=== PATIENT | male | born 1940 | race African-American/Black ===

== ENCOUNTER 2021-10-11 06:17 | Inpatient (IN) | payer OTHER ==
[2021-10-11] MEDS ORDERED: Morphine 4 MG/ML VIAL ONE (07:15)
[2021-10-11 08:03] LABS: #Basophils 0.1 thou/uL (0.0-0.2); #Eosinphils 0.3 thou/uL (0.0-0.7); #Lymphocytes 2.7 thou/uL (1.20-3.40); #Monocytes 0.8 thou/uL (0.11-0.59); #Neutrophils 5.3 thou/uL (1.40-6.50); %Basophils 0.8 % (0.0-1.0); %Eosinophils 2.7 % (0.0-10.0); %Lymphocytes 29.7 % (21.0-51.0); %Monocytes 8.9 % (0.0-10.0); %Neutrophils 57.9 % (42.0-75.0); Hemoglobin 17.4 g/dL (14.0-18.0); Mean Corpuscular HGB CONC 30.8 g/dL (32.0-36.0); Mean Corpuscular Hemoglobin 28.9 pg (27.0-31.0); Mean Corpuscular Volume 94.1 fL (78.0-98.0); Mean Platelet Volume 8.5 fL (7.4-10.4); Platelet Count 152 thou/uL (130-400); RBC Distribution Width 13.2 % (11.5-14.5); Red Blood Cell (RBC) Count 6.02 mill/uL (4.70-6.10); White Blood Cell (WBC) Count 9.1 thou/uL (4.8-10.8)
[2021-10-11 08:17] LABS: ALT (SGPT) 37 U/L (8-55); AST (SGOT) 39 U/L (5-34); Albumin 3.3 g/dL (3.4-4.8); Alkaline Phosphatase 61 U/L (40-110); Anion Gap 15 mmol/L (10-20); BUN (Urea Nitrogen) 16 mg/dL (8.4-25.7); Bilirubin, Total 0.6 mg/dL (0.2-1.2); Calc. Creatinine Clearance 0 mL/min (70-130); Calcium 9.2 mg/dL (7.8-10.44); Carbon Dioxide 28 mmol/L (23-31); Chloride 103 mmol/L (98-107); Estimated GFR 93; Globulin 3.9 g/dL (2.4-3.5); Glucose 170 mg/dL (83-110); Protein, Total 7.2 g/dL (5.8-8.1); Sodium 142 mmol/L (136-145)
[2021-10-11] MEDS ORDERED: Ondansetron PF 4 MG/2 ML Vial IVP PRN (14:05)
[2021-10-11] MEDS ORDERED: Acetaminophen 650 MG Suppository PR PRN (14:05)
[2021-10-11] MEDS ORDERED: Ondansetron ODT 4 MG TAB PO PRN (14:05)
[2021-10-11] MEDS ORDERED: Insulin Regular 300 UNITS/3 ML VIAL SC PRN ×2 (14:07)
[2021-10-11] MEDS ORDERED: Dextrose 5% in Water 1,000 ML IV PRN (14:07)
[2021-10-11] MEDS ORDERED: Dextrose 50% Abboject 50 ML SYRINGE SLOW IVP PRN (14:07)
[2021-10-11] MEDS ORDERED: Albuterol Sulfate 2.5 mg/3 ml Neb NEB PRN (14:44)
[2021-10-11] MEDS: Acetaminophen 325 MG TAB PO PRN ×2 (14:47→21:57)
[2021-10-11] MEDS ORDERED: Xylocaine 1% w/ Epi 1:100K 10 ML VIAL ONE (19:17)
[2021-10-11] MEDS: Fentanyl 100 MCG/2 ML VIAL ONE ×2 (19:30→21:47)
[2021-10-11] MEDS ORDERED: Fentanyl 100 MCG/2 ML VIAL SLOW IVP SCH (20:00)
[2021-10-11] MEDS: Lactated Ringer's 1,000 ML IV SCH (20:36)
[2021-10-11] MEDS: Mometasone 100 MCG/Formoterol 5 MCG 120 PUFF INHALER INH SCH (21:36)
[2021-10-11] MEDS: Metoprolol Tartrate 25 MG TAB PO SCH (21:41)
[2021-10-11] MEDS: Famotidine 20 MG TAB PO SCH (21:41)
[2021-10-11] MEDS: Timolol 0.5% Ophth Soln 5 ml Bottle EA EYE SCH (21:48)
[2021-10-11] MEDS: traMADol HCl 50 MG TAB PO PRN (21:58)
[2021-10-12] MEDS: Metoprolol Tartrate 25 MG TAB PO SCH ×2 (05:13→20:18)
[2021-10-12] MEDS: Famotidine 20 MG TAB PO SCH ×3 (05:13→20:18)
[2021-10-12] MEDS: PARoxetine 20 MG TAB PO SCH (05:13)
[2021-10-12] MEDS: Acetaminophen 325 MG TAB PO PRN ×3 (05:16→20:16)
[2021-10-12] MEDS: traMADol HCl 50 MG TAB PO PRN ×2 (05:17→20:17)
[2021-10-12 05:19] LABS: SARS-CoV-2 NAA Rapid Test Not Detected (NotDetected)
[2021-10-12] MEDS: Mometasone 100 MCG/Formoterol 5 MCG 120 PUFF INHALER INH SCH ×2 (06:40→19:35)
[2021-10-12 07:01] LABS: Hemoglobin 15.4 g/dL (14.0-18.0); Mean Corpuscular HGB CONC 30.5 g/dL (32.0-36.0); Mean Corpuscular Hemoglobin 28.7 pg (27.0-31.0); Mean Corpuscular Volume 94.3 fL (78.0-98.0); Red Blood Cell (RBC) Count 5.36 mill/uL (4.70-6.10)
[2021-10-12 07:05] LABS: #Eosinphils 0.3 thou/uL (0.0-0.7); #Lymphocytes 1.8 thou/uL (1.20-3.40); #Monocytes 0.6 thou/uL (0.11-0.59); #Neutrophils 4.2 thou/uL (1.40-6.50); %Basophils 0.6 % (0.0-1.0); %Eosinophils 4.5 % (0.0-10.0); %Lymphocytes 25.6 % (21.0-51.0); %Monocytes 8.8 % (0.0-10.0); %Neutrophils 60.5 % (42.0-75.0)
[2021-10-12 07:11] LABS: Anion Gap 11 mmol/L (10-20); BUN (Urea Nitrogen) 11 mg/dL (8.4-25.7); Calc. Creatinine Clearance 105 mL/min (70-130); Calcium 8.8 mg/dL (7.8-10.44); Carbon Dioxide 32 mmol/L (23-31); Chloride 102 mmol/L (98-107); Estimated GFR 97; Glucose 100 mg/dL (83-110); Potassium 4.1 mmol/L (3.5-5.1); Sodium 141 mmol/L (136-145)
[2021-10-12] MEDS ORDERED: fentaNYL Citrate/PF 100 MCG/2 ML SYRINGE ONE (07:32)
[2021-10-12] MEDS ORDERED: Phenylephrine 10 MG/ML VIAL ONE ×2 (07:33→08:16)
[2021-10-12] MEDS ORDERED: Bupivacaine PF 0.5% 30 ML VIAL ONE (07:35)
[2021-10-12] MEDS ORDERED: EPINEPHrine 1 MG/ML AMP ONE (07:35)
[2021-10-12] MEDS ORDERED: Ondansetron PF 4 MG/2 ML Vial ONE (08:16)
[2021-10-12] MEDS ORDERED: Dexamethasone 20 MG/5 ML VIAL ONE (08:16)
[2021-10-12] MEDS ORDERED: Lidocaine 1% PF 5 ML VIAL ONE (08:16)
[2021-10-12] MEDS ORDERED: ePHEDrine 50 MG/ML VIAL ONE (08:16)
[2021-10-12] MEDS ORDERED: PROPOFOL 200 MG/20 ML VIAL ONE (08:16)
[2021-10-12] MEDS ORDERED: Rocuronium Bromide 10 MG/ML (10ML VIAL) ONE (08:16)
[2021-10-12 08:18] LABS: Mean Platelet Volume 8.6 fL (7.4-10.4); Platelet Count 116 thou/uL (130-400)
[2021-10-12 08:19] LABS: RBC Morphology Normal
[2021-10-12 08:20] LABS: Platelet Morphology Comment Appears Decreased
[2021-10-12] MEDS ORDERED: SUGAMMADEX SODIUM 200 MG/2 ML VIAL ONE (09:52)
[2021-10-12] MEDS ORDERED: Ondansetron PF 4 MG/2 ML Vial IVP PRN (11:24)
[2021-10-12] MEDS: Fentanyl 100 MCG/2 ML VIAL SLOW IVP PRN ×2 (12:25→16:17)
[2021-10-12] MEDS: Ketorolac Tromethamine 30 MG/ML VIAL IVP PRN (12:26)
[2021-10-12] MEDS: Lactated Ringer's 1,000 ML IV SCH (12:30)
[2021-10-12] MEDS: Timolol 0.5% Ophth Soln 5 ml Bottle EA EYE SCH ×2 (12:31→20:18)
[2021-10-12] MEDS: CEFAZOLIN 2 GM in Sodium Chloride 0.9% 100 ML IVPB SCH (17:42)
[2021-10-13] MEDS: CEFAZOLIN 2 GM in Sodium Chloride 0.9% 100 ML IVPB SCH ×2 (01:26→07:49)
[2021-10-13] MEDS: Lactated Ringer's 1,000 ML IV SCH (02:57)
[2021-10-13 04:06] LABS: #Lymphocytes 1.4 thou/uL (1.20-3.40); #Monocytes 0.9 thou/uL (0.11-0.59); #Neutrophils 9.1 thou/uL (1.40-6.50); %Basophils 0.1 % (0.0-1.0); %Eosinophils 0.1 % (0.0-10.0); %Lymphocytes 12.3 % (21.0-51.0); %Neutrophils 79.4 % (42.0-75.0); Hemoglobin 14.6 g/dL (14.0-18.0); Mean Corpuscular HGB CONC 31.8 g/dL (32.0-36.0); Mean Corpuscular Hemoglobin 29.8 pg (27.0-31.0); Mean Corpuscular Volume 93.8 fL (78.0-98.0); Mean Platelet Volume 8.7 fL (7.4-10.4); Platelet Count 117 thou/uL (130-400); RBC Distribution Width 12.8 % (11.5-14.5); Red Blood Cell (RBC) Count 4.88 mill/uL (4.70-6.10); White Blood Cell (WBC) Count 11.5 thou/uL (4.8-10.8)
[2021-10-13 04:23] LABS: Anion Gap 11 mmol/L (10-20); BUN (Urea Nitrogen) 16 mg/dL (8.4-25.7); Calc. Creatinine Clearance 101 mL/min (70-130); Calcium 8.4 mg/dL (7.8-10.44); Carbon Dioxide 30 mmol/L (23-31); Chloride 102 mmol/L (98-107); Estimated GFR 95; Glucose 139 mg/dL (83-110); Potassium 3.8 mmol/L (3.5-5.1); Sodium 139 mmol/L (136-145)
[2021-10-13] MEDS: Mometasone 100 MCG/Formoterol 5 MCG 120 PUFF INHALER INH SCH ×2 (06:44→19:00)
[2021-10-13] MEDS: Famotidine 20 MG TAB PO SCH ×2 (07:49→21:37)
[2021-10-13] MEDS: Timolol 0.5% Ophth Soln 5 ml Bottle EA EYE SCH ×2 (07:49→21:38)
[2021-10-13] MEDS: Metoprolol Tartrate 25 MG TAB PO SCH ×2 (07:49→22:47)
[2021-10-13] MEDS: PARoxetine 20 MG TAB PO SCH (07:49)
[2021-10-13] MEDS: traMADol HCl 50 MG TAB PO PRN ×2 (07:52→17:00)
[2021-10-13] MEDS: Ketorolac Tromethamine 30 MG/ML VIAL IVP PRN (19:42)
[2021-10-13] MEDS: Brimonidine Tartrate 0.2% Ophth Soln 5 ml Bottle EA EYE SCH (21:38)
[2021-10-14] MEDS: traMADol HCl 50 MG TAB PO PRN ×3 (02:59→16:42)
[2021-10-14 03:43] LABS: #Eosinphils 0.4 thou/uL (0.0-0.7); #Lymphocytes 2.1 thou/uL (1.20-3.40); %Basophils 0.4 % (0.0-1.0); %Eosinophils 3.2 % (0.0-10.0); %Lymphocytes 18.3 % (21.0-51.0); %Monocytes 8.9 % (0.0-10.0); %Neutrophils 69.2 % (42.0-75.0); Hemoglobin 15.9 g/dL (14.0-18.0); Mean Corpuscular HGB CONC 31.7 g/dL (32.0-36.0); Mean Corpuscular Hemoglobin 29.7 pg (27.0-31.0); Mean Corpuscular Volume 93.6 fL (78.0-98.0); Mean Platelet Volume 8.6 fL (7.4-10.4); Platelet Count 121 thou/uL (130-400); RBC Distribution Width 12.9 % (11.5-14.5); Red Blood Cell (RBC) Count 5.34 mill/uL (4.70-6.10); White Blood Cell (WBC) Count 11.5 thou/uL (4.8-10.8)
[2021-10-14 04:04] LABS: Anion Gap 12 mmol/L (10-20); BUN (Urea Nitrogen) 12 mg/dL (8.4-25.7); Calc. Creatinine Clearance 117 mL/min (70-130); Calcium 8.7 mg/dL (7.8-10.44); Carbon Dioxide 31 mmol/L (23-31); Chloride 98 mmol/L (98-107); Estimated GFR 98; Glucose 93 mg/dL (83-110); Potassium 3.5 mmol/L (3.5-5.1); Sodium 137 mmol/L (136-145)
[2021-10-14] MEDS: Ketorolac Tromethamine 30 MG/ML VIAL IVP PRN ×2 (06:36→21:08)
[2021-10-14] MEDS: Mometasone 100 MCG/Formoterol 5 MCG 120 PUFF INHALER INH SCH ×2 (07:07→22:29)
[2021-10-14] MEDS: Amlodipine 5 MG TAB PO SCH (08:27)
[2021-10-14] MEDS: Famotidine 20 MG TAB PO SCH ×2 (08:27→21:09)
[2021-10-14] MEDS: PARoxetine 20 MG TAB PO SCH (08:28)
[2021-10-14] MEDS: Timolol 0.5% Ophth Soln 5 ml Bottle EA EYE SCH ×2 (10:05→21:13)
[2021-10-14] MEDS: Fentanyl 100 MCG/2 ML VIAL SLOW IVP PRN (10:07)
[2021-10-14] MEDS: Brimonidine Tartrate 0.2% Ophth Soln 5 ml Bottle EA EYE SCH (21:08)
[2021-10-15] MEDS: Ketorolac Tromethamine 30 MG/ML VIAL IVP PRN ×2 (04:02→14:05)
[2021-10-15] MEDS: traMADol HCl 50 MG TAB PO PRN ×2 (06:11→21:56)
[2021-10-15] MEDS: Mometasone 100 MCG/Formoterol 5 MCG 120 PUFF INHALER INH SCH ×2 (07:39→18:39)
[2021-10-15] MEDS: Famotidine 20 MG TAB PO SCH ×2 (09:51→21:57)
[2021-10-15] MEDS: Amlodipine 5 MG TAB PO SCH (09:51)
[2021-10-15] MEDS: PARoxetine 20 MG TAB PO SCH (09:51)
[2021-10-15] MEDS: Timolol 0.5% Ophth Soln 5 ml Bottle EA EYE SCH ×2 (09:51→21:55)
[2021-10-15] MEDS: Brimonidine Tartrate 0.2% Ophth Soln 5 ml Bottle EA EYE SCH (21:53)
[2021-10-16] MEDS: traMADol HCl 50 MG TAB PO PRN ×2 (04:32→21:11)
[2021-10-16] MEDS: Mometasone 100 MCG/Formoterol 5 MCG 120 PUFF INHALER INH SCH ×2 (06:44→18:57)
[2021-10-16] MEDS: PARoxetine 20 MG TAB PO SCH (09:45)
[2021-10-16] MEDS: Amlodipine 5 MG TAB PO SCH (09:45)
[2021-10-16] MEDS: Ketorolac Tromethamine 30 MG/ML VIAL IVP PRN ×2 (09:45→15:15)
[2021-10-16] MEDS: Famotidine 20 MG TAB PO SCH ×2 (09:45→21:11)
[2021-10-16] MEDS: Timolol 0.5% Ophth Soln 5 ml Bottle EA EYE SCH ×2 (09:45→21:11)
[2021-10-16] MEDS: Brimonidine Tartrate 0.2% Ophth Soln 5 ml Bottle EA EYE SCH (21:11)
[2021-10-17] MEDS: Mometasone 100 MCG/Formoterol 5 MCG 120 PUFF INHALER INH SCH ×2 (07:13→19:00)
[2021-10-17] MEDS: Amlodipine 5 MG TAB PO SCH (08:20)
[2021-10-17] MEDS: traMADol HCl 50 MG TAB PO PRN ×3 (08:23→22:51)
[2021-10-17] MEDS: PARoxetine 20 MG TAB PO SCH (08:23)
[2021-10-17] MEDS: Famotidine 20 MG TAB PO SCH ×2 (08:24→21:32)
[2021-10-17] MEDS: Timolol 0.5% Ophth Soln 5 ml Bottle EA EYE SCH ×2 (08:27→21:33)
[2021-10-17] MEDS: Fentanyl 100 MCG/2 ML VIAL SLOW IVP PRN (18:42)
[2021-10-17] MEDS: Brimonidine Tartrate 0.2% Ophth Soln 5 ml Bottle EA EYE SCH (21:33)
[2021-10-18] MEDS: Fentanyl 100 MCG/2 ML VIAL SLOW IVP PRN ×2 (03:13→10:55)
[2021-10-18 04:30] LABS: #Eosinphils 0.4 thou/uL (0.0-0.7); #Lymphocytes 1.5 thou/uL (1.20-3.40); #Monocytes 1.4 thou/uL (0.11-0.59); #Neutrophils 10.8 thou/uL (1.40-6.50); %Basophils 0.2 % (0.0-1.0); %Eosinophils 3.1 % (0.0-10.0); %Lymphocytes 10.3 % (21.0-51.0); %Monocytes 10.1 % (0.0-10.0); %Neutrophils 76.2 % (42.0-75.0); Hemoglobin 15.4 g/dL (14.0-18.0); Mean Corpuscular HGB CONC 31.5 g/dL (32.0-36.0); Mean Corpuscular Hemoglobin 29.1 pg (27.0-31.0); Mean Corpuscular Volume 92.2 fL (78.0-98.0); Mean Platelet Volume 8.1 fL (7.4-10.4); Platelet Count 157 thou/uL (130-400); Red Blood Cell (RBC) Count 5.29 mill/uL (4.70-6.10); White Blood Cell (WBC) Count 14.1 thou/uL (4.8-10.8)
[2021-10-18 04:51] LABS: Anion Gap 10 mmol/L (10-20); BUN (Urea Nitrogen) 19 mg/dL (8.4-25.7); Calc. Creatinine Clearance 104 mL/min (70-130); Calcium 9.1 mg/dL (7.8-10.44); Carbon Dioxide 34 mmol/L (23-31); Chloride 100 mmol/L (98-107); Estimated GFR 96; Glucose 126 mg/dL (83-110); Potassium 3.8 mmol/L (3.5-5.1); Sodium 140 mmol/L (136-145)
[2021-10-18] MEDS: Mometasone 100 MCG/Formoterol 5 MCG 120 PUFF INHALER INH SCH ×2 (07:49→19:21)
[2021-10-18] MEDS: traMADol HCl 50 MG TAB PO PRN (09:18)
[2021-10-18] MEDS: Amlodipine 5 MG TAB PO SCH (09:20)
[2021-10-18] MEDS: PARoxetine 20 MG TAB PO SCH (09:21)
[2021-10-18] MEDS: Famotidine 20 MG TAB PO SCH ×2 (09:21→19:59)
[2021-10-18] MEDS: Timolol 0.5% Ophth Soln 5 ml Bottle EA EYE SCH ×2 (09:23→20:00)
[2021-10-18] MEDS ORDERED: Lidocaine 5% Patch TD SCH (12:00)
[2021-10-18] MEDS ORDERED: Polyethylene Glycol 3350 17 GM Packet PO PRN (12:37)
[2021-10-18] MEDS: HYDROcodone/Acetaminophen 10/325 mg Tablet PO PRN ×2 (13:25→18:52)
[2021-10-18] MEDS: Acetaminophen 325 MG TAB PO PRN (19:59)
[2021-10-18] MEDS: Brimonidine Tartrate 0.2% Ophth Soln 5 ml Bottle EA EYE SCH (20:00)
[2021-10-19] MEDS: Transdermal Patch Removal TOP SCH ×2 (00:05→23:22)
[2021-10-19] MEDS: HYDROcodone/Acetaminophen 10/325 mg Tablet PO PRN ×4 (03:20→20:19)
[2021-10-19] MEDS: Mometasone 100 MCG/Formoterol 5 MCG 120 PUFF INHALER INH SCH ×2 (07:31→18:38)
[2021-10-19] MEDS: Famotidine 20 MG TAB PO SCH ×2 (09:59→20:19)
[2021-10-19] MEDS: PARoxetine 20 MG TAB PO SCH (09:59)
[2021-10-19] MEDS: Amlodipine 5 MG TAB PO SCH (09:59)
[2021-10-19] MEDS: Timolol 0.5% Ophth Soln 5 ml Bottle EA EYE SCH ×2 (10:01→20:18)
[2021-10-19] MEDS: Lidocaine 5% Patch TD SCH (12:05)
[2021-10-19] MEDS: Brimonidine Tartrate 0.2% Ophth Soln 5 ml Bottle EA EYE SCH (20:18)
[2021-10-20] MEDS: HYDROcodone/Acetaminophen 10/325 mg Tablet PO PRN ×4 (00:16→21:16)
[2021-10-20] MEDS: Mometasone 100 MCG/Formoterol 5 MCG 120 PUFF INHALER INH SCH ×2 (07:12→19:35)
[2021-10-20] MEDS: Famotidine 20 MG TAB PO SCH ×2 (10:19→21:17)
[2021-10-20] MEDS: PARoxetine 20 MG TAB PO SCH (10:19)
[2021-10-20] MEDS: Amlodipine 5 MG TAB PO SCH (10:19)
[2021-10-20] MEDS: Timolol 0.5% Ophth Soln 5 ml Bottle EA EYE SCH ×2 (10:20→21:17)
[2021-10-20] MEDS: Lidocaine 5% Patch TD SCH (12:51)
[2021-10-20] MEDS: Morphine 2 MG/ML VIAL SLOW IVP PRN (17:31)
[2021-10-20] MEDS: Brimonidine Tartrate 0.2% Ophth Soln 5 ml Bottle EA EYE SCH (21:17)
[2021-10-20] MEDS: traMADol HCl 50 MG TAB PO PRN (23:45)
[2021-10-20] MEDS: Transdermal Patch Removal TOP SCH (23:48)
[2021-10-21] MEDS: HYDROcodone/Acetaminophen 10/325 mg Tablet PO PRN ×3 (05:06→16:47)
[2021-10-21] MEDS: Mometasone 100 MCG/Formoterol 5 MCG 120 PUFF INHALER INH SCH ×2 (07:22→18:25)
[2021-10-21 08:24] LABS: Mean Corpuscular HGB CONC 31.9 g/dL (32.0-36.0); Mean Corpuscular Hemoglobin 29.9 pg (27.0-31.0); Mean Corpuscular Volume 93.8 fL (78.0-98.0); Platelet Count 150 thou/uL (130-400); RBC Distribution Width 12.7 % (11.5-14.5); Red Blood Cell (RBC) Count 5.02 mill/uL (4.70-6.10); White Blood Cell (WBC) Count 10.8 thou/uL (4.8-10.8)
[2021-10-21 08:38] LABS: Anion Gap 13 mmol/L (10-20); BUN (Urea Nitrogen) 18 mg/dL (8.4-25.7); Calc. Creatinine Clearance 119 mL/min (70-130); Calcium 8.9 mg/dL (7.8-10.44); Carbon Dioxide 31 mmol/L (23-31); Chloride 101 mmol/L (98-107); Estimated GFR 101; Glucose 98 mg/dL (83-110); Potassium 3.6 mmol/L (3.5-5.1); Sodium 141 mmol/L (136-145)
[2021-10-21] MEDS: Enoxaparin Sodium 40 MG/0.4 ML SYRINGE SC SCH (09:08)
[2021-10-21] MEDS: Amlodipine 5 MG TAB PO SCH (09:08)
[2021-10-21] MEDS: Famotidine 20 MG TAB PO SCH ×2 (09:08→21:20)
[2021-10-21] MEDS: PARoxetine 20 MG TAB PO SCH (09:08)
[2021-10-21] MEDS: Acetaminophen 325 MG TAB PO PRN (09:09)
[2021-10-21] MEDS: Timolol 0.5% Ophth Soln 5 ml Bottle EA EYE SCH ×2 (09:09→21:21)
[2021-10-21] MEDS: Lidocaine 5% Patch TD SCH (12:08)
[2021-10-21] MEDS: Brimonidine Tartrate 0.2% Ophth Soln 5 ml Bottle EA EYE SCH (21:21)
[2021-10-21] MEDS: Transdermal Patch Removal TOP SCH (22:57)
[2021-10-22] MEDS: traMADol HCl 50 MG TAB PO PRN (01:01)
[2021-10-22] MEDS: Mometasone 100 MCG/Formoterol 5 MCG 120 PUFF INHALER INH SCH ×2 (07:42→19:31)
[2021-10-22] MEDS: HYDROcodone/Acetaminophen 10/325 mg Tablet PO PRN ×3 (09:02→17:46)
[2021-10-22] MEDS: Amlodipine 5 MG TAB PO SCH (09:04)
[2021-10-22] MEDS: Famotidine 20 MG TAB PO SCH ×2 (09:05→20:43)
[2021-10-22] MEDS: Enoxaparin Sodium 40 MG/0.4 ML SYRINGE SC SCH (09:05)
[2021-10-22] MEDS: Timolol 0.5% Ophth Soln 5 ml Bottle EA EYE SCH ×2 (09:05→20:43)
[2021-10-22] MEDS: PARoxetine 20 MG TAB PO SCH (09:05)
[2021-10-22] MEDS: Lidocaine 5% Patch TD SCH (12:20)
[2021-10-22] MEDS: Brimonidine Tartrate 0.2% Ophth Soln 5 ml Bottle EA EYE SCH (20:43)
[2021-10-23] MEDS: HYDROcodone/Acetaminophen 10/325 mg Tablet PO PRN ×3 (00:07→19:31)
[2021-10-23] MEDS: Transdermal Patch Removal TOP SCH (00:19)
[2021-10-23 03:00] LABS: SARS-CoV-2 NAA Rapid Test Not Detected (NotDetected)
[2021-10-23] MEDS: Mometasone 100 MCG/Formoterol 5 MCG 120 PUFF INHALER INH SCH ×2 (06:36→18:25)
[2021-10-23 06:41] LABS: Actual Bicarbonate (HCO3a) 31.2 mEq/L (22-28); Base Excess (BEa) 6.4 mEq/L (-2.0 to +3.0); CO2 Tension 44.5 mmHg (35.0-45.0); Carboxyhemoglobin (COHb) 1.8 gm% (0.0-3.0); Hemoglobin (Hb) 15.8 g/dL (14.0-18.0); O2 Tension (PaO2), arterial 65.1 mmHg (> 60.0); pH, Arterial 7.46 (7.35-7.45)
[2021-10-23 06:42] LABS: #Eosinphils 0.1 thou/uL (0.0-0.7); #Lymphocytes 1.5 thou/uL (1.20-3.40); #Monocytes 1.2 thou/uL (0.11-0.59); #Neutrophils 11.2 thou/uL (1.40-6.50); %Eosinophils 0.8 % (0.0-10.0); %Lymphocytes 10.6 % (21.0-51.0); %Monocytes 8.6 % (0.0-10.0); Hemoglobin 15.4 g/dL (14.0-18.0); Mean Corpuscular HGB CONC 31.1 g/dL (32.0-36.0); Mean Corpuscular Hemoglobin 28.5 pg (27.0-31.0); Mean Corpuscular Volume 91.5 fL (78.0-98.0); Platelet Count 212 thou/uL (130-400); RBC Distribution Width 12.7 % (11.5-14.5); Red Blood Cell (RBC) Count 5.41 mill/uL (4.70-6.10)
[2021-10-23 06:50] LABS: ALV-art Gradient 235.775 mmHg (0-20); Puncture Site LRA
[2021-10-23 07:00] LABS: Anion Gap 15 mmol/L (10-20); BUN (Urea Nitrogen) 18 mg/dL (8.4-25.7); Calc. Creatinine Clearance 107 mL/min (70-130); Calcium 9.2 mg/dL (7.8-10.44); Carbon Dioxide 27 mmol/L (23-31); Chloride 102 mmol/L (98-107); Estimated GFR 97; Glucose 131 mg/dL (83-110); Potassium 3.5 mmol/L (3.5-5.1); Sodium 140 mmol/L (136-145)
[2021-10-23] MEDS ORDERED: Lidocaine 0.5%/Epinephrine 1:200,000 50 ml Vial ONE (08:42)
[2021-10-23] MEDS: PARoxetine 20 MG TAB PO SCH (10:40)
[2021-10-23] MEDS: Enoxaparin Sodium 40 MG/0.4 ML SYRINGE SC SCH (10:40)
[2021-10-23] MEDS: Amlodipine 5 MG TAB PO SCH (10:40)
[2021-10-23] MEDS: Famotidine 20 MG TAB PO SCH ×2 (10:40→19:33)
[2021-10-23] MEDS: Morphine 2 MG/ML VIAL SLOW IVP PRN ×2 (10:41→22:40)
[2021-10-23] MEDS: Timolol 0.5% Ophth Soln 5 ml Bottle EA EYE SCH ×2 (10:42→22:40)
[2021-10-23] MEDS ORDERED: Iopamidol-370 76% 500 ML 1 ML ONE (11:18)
[2021-10-23] MEDS: Lidocaine 5% Patch TD SCH (13:07)
[2021-10-23] MEDS: Docusate 100 MG CAP PO PRN (16:14)
[2021-10-23] MEDS: Brimonidine Tartrate 0.2% Ophth Soln 5 ml Bottle EA EYE SCH (22:40)
[2021-10-24] MEDS: Transdermal Patch Removal TOP SCH ×2 (00:58→20:39)
[2021-10-24] MEDS: Mometasone 100 MCG/Formoterol 5 MCG 120 PUFF INHALER INH SCH ×2 (07:26→18:26)
[2021-10-24] MEDS: Famotidine 20 MG TAB PO SCH ×2 (08:21→20:37)
[2021-10-24] MEDS: Amlodipine 5 MG TAB PO SCH (08:21)
[2021-10-24] MEDS: HYDROcodone/Acetaminophen 10/325 mg Tablet PO PRN ×3 (08:21→20:37)
[2021-10-24] MEDS: Timolol 0.5% Ophth Soln 5 ml Bottle EA EYE SCH ×2 (08:22→20:38)
[2021-10-24] MEDS: Enoxaparin Sodium 40 MG/0.4 ML SYRINGE SC SCH (08:22)
[2021-10-24] MEDS: PARoxetine 20 MG TAB PO SCH (08:23)
[2021-10-24] MEDS: Lidocaine 5% Patch TD SCH (13:11)
[2021-10-24] MEDS: Morphine 2 MG/ML VIAL SLOW IVP PRN (17:24)
[2021-10-24] MEDS: Brimonidine Tartrate 0.2% Ophth Soln 5 ml Bottle EA EYE SCH (20:39)
[2021-10-25] MEDS: HYDROcodone/Acetaminophen 10/325 mg Tablet PO PRN ×4 (05:53→20:47)
[2021-10-25] MEDS: Mometasone 100 MCG/Formoterol 5 MCG 120 PUFF INHALER INH SCH ×2 (07:08→18:34)
[2021-10-25] MEDS: Enoxaparin Sodium 40 MG/0.4 ML SYRINGE SC SCH (09:38)
[2021-10-25] MEDS: Famotidine 20 MG TAB PO SCH ×2 (09:38→20:46)
[2021-10-25] MEDS: PARoxetine 20 MG TAB PO SCH (09:39)
[2021-10-25] MEDS: Timolol 0.5% Ophth Soln 5 ml Bottle EA EYE SCH ×2 (09:39→20:47)
[2021-10-25] MEDS: Amlodipine 5 MG TAB PO SCH (09:40)
[2021-10-25] MEDS: Lidocaine 5% Patch TD SCH (12:44)
[2021-10-25] MEDS: Brimonidine Tartrate 0.2% Ophth Soln 5 ml Bottle EA EYE SCH (20:48)
[2021-10-25] MEDS: Transdermal Patch Removal TOP SCH (20:48)
[2021-10-26] MEDS: HYDROcodone/Acetaminophen 10/325 mg Tablet PO PRN ×3 (01:58→19:19)
[2021-10-26] MEDS: Mometasone 100 MCG/Formoterol 5 MCG 120 PUFF INHALER INH SCH ×2 (06:12→18:29)
[2021-10-26] MEDS: Timolol 0.5% Ophth Soln 5 ml Bottle EA EYE SCH ×2 (09:47→20:41)
[2021-10-26] MEDS: Enoxaparin Sodium 40 MG/0.4 ML SYRINGE SC SCH (09:48)
[2021-10-26] MEDS: PARoxetine 20 MG TAB PO SCH (09:48)
[2021-10-26] MEDS: Amlodipine 5 MG TAB PO SCH (09:49)
[2021-10-26] MEDS: Famotidine 20 MG TAB PO SCH ×2 (09:49→20:45)
[2021-10-26] MEDS: Lidocaine 5% Patch TD SCH (14:31)
[2021-10-26] MEDS: Brimonidine Tartrate 0.2% Ophth Soln 5 ml Bottle EA EYE SCH (20:45)
[2021-10-27] MEDS: Transdermal Patch Removal TOP SCH (00:54)
[2021-10-27] MEDS: HYDROcodone/Acetaminophen 10/325 mg Tablet PO PRN ×3 (04:01→18:10)
[2021-10-27] MEDS: Mometasone 100 MCG/Formoterol 5 MCG 120 PUFF INHALER INH SCH ×2 (06:59→18:39)
[2021-10-27] MEDS: PARoxetine 20 MG TAB PO SCH (09:40)
[2021-10-27] MEDS: Famotidine 20 MG TAB PO SCH ×2 (09:40→20:26)
[2021-10-27] MEDS: Amlodipine 5 MG TAB PO SCH (09:42)
[2021-10-27] MEDS: Timolol 0.5% Ophth Soln 5 ml Bottle EA EYE SCH ×2 (09:43→20:27)
[2021-10-27] MEDS: Enoxaparin Sodium 40 MG/0.4 ML SYRINGE SC SCH (09:43)
[2021-10-27] MEDS: Lidocaine 5% Patch TD SCH (12:55)
[2021-10-27] MEDS: Brimonidine Tartrate 0.2% Ophth Soln 5 ml Bottle EA EYE SCH (20:26)
[2021-10-28] MEDS: Transdermal Patch Removal TOP SCH ×2 (02:26→22:41)
[2021-10-28] MEDS: Mometasone 100 MCG/Formoterol 5 MCG 120 PUFF INHALER INH SCH ×2 (07:41→19:09)
[2021-10-28] MEDS: Famotidine 20 MG TAB PO SCH ×2 (09:10→20:25)
[2021-10-28] MEDS: Enoxaparin Sodium 40 MG/0.4 ML SYRINGE SC SCH (09:10)
[2021-10-28] MEDS: HYDROcodone/Acetaminophen 10/325 mg Tablet PO PRN ×3 (09:10→22:41)
[2021-10-28] MEDS: Amlodipine 5 MG TAB PO SCH (09:14)
[2021-10-28] MEDS: PARoxetine 20 MG TAB PO SCH (09:14)
[2021-10-28] MEDS: Timolol 0.5% Ophth Soln 5 ml Bottle EA EYE SCH ×2 (09:16→20:25)
[2021-10-28] MEDS: Lidocaine 5% Patch TD SCH (11:35)
[2021-10-28] MEDS: Docusate 100 MG CAP PO PRN (20:25)
[2021-10-28] MEDS: Brimonidine Tartrate 0.2% Ophth Soln 5 ml Bottle EA EYE SCH (20:25)
[2021-10-29] MEDS: HYDROcodone/Acetaminophen 10/325 mg Tablet PO PRN ×3 (05:22→20:27)
[2021-10-29] MEDS: Mometasone 100 MCG/Formoterol 5 MCG 120 PUFF INHALER INH SCH ×2 (07:38→18:31)
[2021-10-29] MEDS: Amlodipine 5 MG TAB PO SCH (08:43)
[2021-10-29] MEDS: Polyethylene Glycol 3350 17 GM Packet PO SCH (08:43)
[2021-10-29] MEDS: Enoxaparin Sodium 40 MG/0.4 ML SYRINGE SC SCH (08:44)
[2021-10-29] MEDS: Famotidine 20 MG TAB PO SCH ×2 (08:44→20:08)
[2021-10-29] MEDS: PARoxetine 20 MG TAB PO SCH (08:44)
[2021-10-29] MEDS: Timolol 0.5% Ophth Soln 5 ml Bottle EA EYE SCH ×2 (08:45→20:08)
[2021-10-29] MEDS: Lidocaine 5% Patch TD SCH (13:09)
[2021-10-29] MEDS: Brimonidine Tartrate 0.2% Ophth Soln 5 ml Bottle EA EYE SCH (20:09)
[2021-10-30] MEDS: HYDROcodone/Acetaminophen 10/325 mg Tablet PO PRN ×4 (00:34→23:26)
[2021-10-30] MEDS: Transdermal Patch Removal TOP SCH ×2 (00:42→23:26)
[2021-10-30] MEDS: Mometasone 100 MCG/Formoterol 5 MCG 120 PUFF INHALER INH SCH ×2 (07:15→19:20)
[2021-10-30] MEDS: Enoxaparin Sodium 40 MG/0.4 ML SYRINGE SC SCH (08:49)
[2021-10-30] MEDS: Timolol 0.5% Ophth Soln 5 ml Bottle EA EYE SCH ×2 (08:50→20:49)
[2021-10-30] MEDS: Famotidine 20 MG TAB PO SCH ×2 (08:50→20:50)
[2021-10-30] MEDS: Polyethylene Glycol 3350 17 GM Packet PO SCH (08:50)
[2021-10-30] MEDS: PARoxetine 20 MG TAB PO SCH (08:51)
[2021-10-30] MEDS: Amlodipine 5 MG TAB PO SCH (08:51)
[2021-10-30] MEDS: Lidocaine 5% Patch TD SCH (12:53)
[2021-10-30] MEDS: Docusate 100 MG CAP PO PRN (20:50)
[2021-10-30] MEDS: Brimonidine Tartrate 0.2% Ophth Soln 5 ml Bottle EA EYE SCH (20:50)
[2021-10-31] MEDS: HYDROcodone/Acetaminophen 10/325 mg Tablet PO PRN ×3 (04:59→20:21)
[2021-10-31] MEDS: Mometasone 100 MCG/Formoterol 5 MCG 120 PUFF INHALER INH SCH ×2 (06:52→19:12)
[2021-10-31 07:32] LABS: #Eosinphils 0.4 thou/uL (0.0-0.7); #Lymphocytes 1.4 thou/uL (1.20-3.40); #Monocytes 1.3 thou/uL (0.11-0.59); #Neutrophils 10.1 thou/uL (1.40-6.50); %Basophils 0.2 % (0.0-1.0); %Eosinophils 2.7 % (0.0-10.0); %Lymphocytes 10.9 % (21.0-51.0); %Monocytes 9.7 % (0.0-10.0); %Neutrophils 76.6 % (42.0-75.0); Hemoglobin 14.5 g/dL (14.0-18.0); Mean Corpuscular HGB CONC 30.8 g/dL (32.0-36.0); Mean Corpuscular Hemoglobin 28.1 pg (27.0-31.0); Mean Corpuscular Volume 91.2 fL (78.0-98.0); Mean Platelet Volume 7.7 fL (7.4-10.4); Platelet Count 208 thou/uL (130-400); RBC Distribution Width 12.3 % (11.5-14.5); Red Blood Cell (RBC) Count 5.16 mill/uL (4.70-6.10); White Blood Cell (WBC) Count 13.1 thou/uL (4.8-10.8)
[2021-10-31 08:02] LABS: ALT (SGPT) 18 U/L (8-55); AST (SGOT) 28 U/L (5-34); Albumin 2.4 g/dL (3.4-4.8); Alkaline Phosphatase 91 U/L (40-110); Anion Gap 14 mmol/L (10-20); BUN (Urea Nitrogen) 16 mg/dL (8.4-25.7); Bilirubin, Total 0.5 mg/dL (0.2-1.2); Calc. Creatinine Clearance 109 mL/min (70-130); Calcium 8.8 mg/dL (7.8-10.44); Carbon Dioxide 31 mmol/L (23-31); Chloride 100 mmol/L (98-107); Estimated GFR 98; Globulin 5.5 g/dL (2.4-3.5); Glucose 114 mg/dL (83-110); Potassium 3.7 mmol/L (3.5-5.1); Protein, Total 7.9 g/dL (5.8-8.1); Sodium 141 mmol/L (136-145)
[2021-10-31] MEDS: PARoxetine 20 MG TAB PO SCH (09:17)
[2021-10-31] MEDS: Amlodipine 5 MG TAB PO SCH (09:17)
[2021-10-31] MEDS: Enoxaparin Sodium 40 MG/0.4 ML SYRINGE SC SCH (09:17)
[2021-10-31] MEDS: Polyethylene Glycol 3350 17 GM Packet PO SCH (09:17)
[2021-10-31] MEDS: Timolol 0.5% Ophth Soln 5 ml Bottle EA EYE SCH ×2 (09:18→20:21)
[2021-10-31] MEDS: Famotidine 20 MG TAB PO SCH ×2 (09:18→20:22)
[2021-10-31] MEDS: Lidocaine 5% Patch TD SCH (11:56)
[2021-10-31 12:58] VITALS: BMI 21.4
[2021-10-31] MEDS: Brimonidine Tartrate 0.2% Ophth Soln 5 ml Bottle EA EYE SCH (20:21)
[2021-11-01] MEDS: Transdermal Patch Removal TOP SCH (00:45)
[2021-11-01] MEDS: HYDROcodone/Acetaminophen 10/325 mg Tablet PO PRN ×4 (04:59→22:23)
[2021-11-01] MEDS: Acetaminophen 325 MG TAB PO PRN (06:10)
[2021-11-01] MEDS: Mometasone 100 MCG/Formoterol 5 MCG 120 PUFF INHALER INH SCH ×2 (06:55→18:22)
[2021-11-01] MEDS: Timolol 0.5% Ophth Soln 5 ml Bottle EA EYE SCH ×2 (08:13→22:57)
[2021-11-01] MEDS: Amlodipine 5 MG TAB PO SCH (08:14)
[2021-11-01] MEDS: Polyethylene Glycol 3350 17 GM Packet PO SCH (08:14)
[2021-11-01] MEDS: Enoxaparin Sodium 40 MG/0.4 ML SYRINGE SC SCH (08:14)
[2021-11-01] MEDS: PARoxetine 20 MG TAB PO SCH (08:14)
[2021-11-01] MEDS: Famotidine 20 MG TAB PO SCH ×2 (08:14→19:11)
[2021-11-01] MEDS: Lidocaine 5% Patch TD SCH (13:00)
[2021-11-01] MEDS: Brimonidine Tartrate 0.2% Ophth Soln 5 ml Bottle EA EYE SCH (20:00)
[2021-11-02] MEDS: HYDROcodone/Acetaminophen 10/325 mg Tablet PO PRN ×5 (03:47→20:07)
[2021-11-02] MEDS: Transdermal Patch Removal TOP SCH (05:34)
[2021-11-02] MEDS: Mometasone 100 MCG/Formoterol 5 MCG 120 PUFF INHALER INH SCH ×2 (07:03→18:04)
[2021-11-02] MEDS: Famotidine 20 MG TAB PO SCH ×2 (09:30→20:07)
[2021-11-02] MEDS: Enoxaparin Sodium 40 MG/0.4 ML SYRINGE SC SCH (09:30)
[2021-11-02] MEDS: PARoxetine 20 MG TAB PO SCH (09:31)
[2021-11-02] MEDS: Amlodipine 5 MG TAB PO SCH (09:31)
[2021-11-02] MEDS: Timolol 0.5% Ophth Soln 5 ml Bottle EA EYE SCH ×2 (09:32→21:43)
[2021-11-02] MEDS: Polyethylene Glycol 3350 17 GM Packet PO SCH (10:24)
[2021-11-02] MEDS: Lidocaine 5% Patch TD SCH (11:50)
[2021-11-02] MEDS: Brimonidine Tartrate 0.2% Ophth Soln 5 ml Bottle EA EYE SCH (21:43)
[2021-11-03] MEDS: Transdermal Patch Removal TOP SCH ×2 (02:19→23:37)
[2021-11-03] MEDS: HYDROcodone/Acetaminophen 10/325 mg Tablet PO PRN ×4 (02:19→18:18)
[2021-11-03] MEDS: Mometasone 100 MCG/Formoterol 5 MCG 120 PUFF INHALER INH SCH ×2 (07:17→19:10)
[2021-11-03] MEDS: Enoxaparin Sodium 40 MG/0.4 ML SYRINGE SC SCH (10:13)
[2021-11-03] MEDS: Polyethylene Glycol 3350 17 GM Packet PO SCH (10:13)
[2021-11-03] MEDS: Famotidine 20 MG TAB PO SCH ×2 (10:13→20:58)
[2021-11-03] MEDS: PARoxetine 20 MG TAB PO SCH (10:13)
[2021-11-03] MEDS: Timolol 0.5% Ophth Soln 5 ml Bottle EA EYE SCH ×2 (10:13→20:48)
[2021-11-03] MEDS: Amlodipine 5 MG TAB PO SCH (10:14)
[2021-11-03] MEDS: Lidocaine 5% Patch TD SCH (11:49)
[2021-11-03] MEDS: Brimonidine Tartrate 0.2% Ophth Soln 5 ml Bottle EA EYE SCH (20:48)
[2021-11-03] MEDS: Senokot S 8.6-50 MG TAB PO SCH (20:58)
[2021-11-04] MEDS: HYDROcodone/Acetaminophen 10/325 mg Tablet PO PRN ×3 (02:56→16:56)
[2021-11-04] MEDS: Mometasone 100 MCG/Formoterol 5 MCG 120 PUFF INHALER INH SCH ×2 (07:42→19:36)
[2021-11-04] MEDS: Polyethylene Glycol 3350 17 GM Packet PO SCH (09:47)
[2021-11-04] MEDS: Enoxaparin Sodium 40 MG/0.4 ML SYRINGE SC SCH (09:47)
[2021-11-04] MEDS: PARoxetine 20 MG TAB PO SCH (09:47)
[2021-11-04] MEDS: Amlodipine 5 MG TAB PO SCH (09:47)
[2021-11-04] MEDS: Famotidine 20 MG TAB PO SCH ×2 (09:47→21:30)
[2021-11-04] MEDS: Docusate 100 MG CAP PO PRN (09:47)
[2021-11-04] MEDS: Senokot S 8.6-50 MG TAB PO SCH ×2 (09:48→21:30)
[2021-11-04] MEDS: Timolol 0.5% Ophth Soln 5 ml Bottle EA EYE SCH ×2 (09:49→21:30)
[2021-11-04] MEDS ORDERED: Electrolyte Replacement Protocol FS PRN (17:15)
[2021-11-04] MEDS: Brimonidine Tartrate 0.2% Ophth Soln 5 ml Bottle EA EYE SCH (21:35)
[2021-11-04] MEDS ORDERED: Benzonatate 100 MG CAP PO PRN (23:49)
[2021-11-05] MEDS: Transdermal Patch Removal TOP SCH (00:23)
[2021-11-05] MEDS: HYDROcodone/Acetaminophen 10/325 mg Tablet PO PRN (03:12)
[2021-11-05 04:37] LABS: #Eosinphils 0.3 thou/uL (0.0-0.7); #Lymphocytes 1.7 thou/uL (1.20-3.40); #Monocytes 0.8 thou/uL (0.11-0.59); #Neutrophils 7.3 thou/uL (1.40-6.50); %Basophils 0.4 % (0.0-1.0); %Eosinophils 3.2 % (0.0-10.0); %Lymphocytes 16.3 % (21.0-51.0); %Monocytes 8.3 % (0.0-10.0); %Neutrophils 71.9 % (42.0-75.0); Mean Corpuscular HGB CONC 31.6 g/dL (32.0-36.0); Mean Corpuscular Hemoglobin 28.6 pg (27.0-31.0); Mean Corpuscular Volume 90.5 fL (78.0-98.0); Mean Platelet Volume 7.8 fL (7.4-10.4); Platelet Count 208 thou/uL (130-400); RBC Distribution Width 12.4 % (11.5-14.5); Red Blood Cell (RBC) Count 4.88 mill/uL (4.70-6.10); White Blood Cell (WBC) Count 10.2 thou/uL (4.8-10.8)
[2021-11-05 04:57] LABS: Albumin 2.3 g/dL (3.4-4.8); Anion Gap 10 mmol/L (10-20); BUN (Urea Nitrogen) 17 mg/dL (8.4-25.7); BUN/Creatinine Ratio 30.91; Calc. Creatinine Clearance 113 mL/min (70-130); Calcium 8.9 mg/dL (7.8-10.44); Carbon Dioxide 32 mmol/L (23-31); Chloride 100 mmol/L (98-107); Estimated GFR 100; Glucose 106 mg/dL (83-110); Potassium 3.4 mmol/L (3.5-5.1); Sodium 139 mmol/L (136-145)
[2021-11-05] MEDS: Mometasone 100 MCG/Formoterol 5 MCG 120 PUFF INHALER INH SCH (07:03)
[2021-11-05] MEDS ORDERED: Magnesium 2 GM/50 ML(in water) 2 GM in Premix Bag 1 BAG IVPB SCH (08:00)
[2021-11-05] MEDS ORDERED: Potassium Chloride 20 MEQ TAB PO SCH (08:00)
[2021-11-05] MEDS: Enoxaparin Sodium 40 MG/0.4 ML SYRINGE SC SCH (09:05)
[2021-11-05] MEDS: PARoxetine 20 MG TAB PO SCH (09:05)
[2021-11-05] MEDS: Amlodipine 5 MG TAB PO SCH (09:05)
[2021-11-05] MEDS: Polyethylene Glycol 3350 17 GM Packet PO SCH (09:05)
[2021-11-05] MEDS: Famotidine 20 MG TAB PO SCH (09:05)
[2021-11-05] MEDS: Senokot S 8.6-50 MG TAB PO SCH (09:05)
[2021-11-05] MEDS: Timolol 0.5% Ophth Soln 5 ml Bottle EA EYE SCH (09:05)
[2021-11-05] MEDS: Lidocaine 5% Patch TD SCH (11:46)
[2021-11-05 12:29] VITALS: BP 105/69; TEMP 97.7
== END 2021-11-05 13:50 | DRG 163 ==
LOC: EDBD 06:17 → ERS 06:17 → 2NO 07:32 → CCU 18:56 → 2NO 10-14 11:25 → IMCU/EMU 10-23 09:22 → 2NO 10-26 22:23
PROVIDERS: ADMIT Internal Medicine; ATTEND Internal Medicine
PROC: 0W9930Z Drainage of Right Pleural Cavity with Drainage Device, Percutaneous Approach (ICD-10-PCS; 2021-10-11)
PROC: 0B5N4ZZ Destruction of Right Pleura, Percutaneous Endoscopic Approach (ICD-10-PCS; principal; 2021-10-12)
PROC: 0W9930Z Drainage of Right Pleural Cavity with Drainage Device, Percutaneous Approach (ICD-10-PCS; 2021-10-23)
PROC: 0WP9X0Z Removal of Drainage Device from Right Pleural Cavity, External Approach (ICD-10-PCS; 2021-10-23)
DX: J93.83 Other pneumothorax (principal); J96.01 Acute respiratory failure with hypoxia; E43 Unspecified severe protein-calorie malnutrition; Z20.822 Contact with and (suspected) exposure to COVID-19; I10 Essential (primary) hypertension; E11.9 Type 2 diabetes mellitus without complications; H40.9 Unspecified glaucoma; E87.6 Hypokalemia; E83.42 Hypomagnesemia; D69.6 Thrombocytopenia, unspecified; J44.9 Chronic obstructive pulmonary disease, unspecified; F41.9 Anxiety disorder, unspecified; K59.00 Constipation, unspecified; K21.9 Gastro-esophageal reflux disease without esophagitis; J84.10 Pulmonary fibrosis, unspecified; Z60.2 Problems related to living alone; L97.529 Non-pressure chronic ulcer of other part of left foot with unspecified severity; E11.621 Type 2 diabetes mellitus with foot ulcer; J95.812 Postprocedural air leak; Y84.8 Other medical procedures as the cause of abnormal reaction of the patient, or of later complication, without mention of misadventure at the time of the procedure; Z28.21 Immunization not carried out because of patient refusal; Z68.21 Body mass index [BMI] 21.0-21.9, adult; Z87.891 Personal history of nicotine dependence; Z79.899 Other long term (current) drug therapy; Z79.52 Long term (current) use of systemic steroids; Z98.890 Other specified postprocedural states; Z82.5 Family history of asthma and other chronic lower respiratory diseases
CPT/HCPCS: 32551; 36415; 36416; 36600; 71045; 71275; 80048; 80053; 80069; 82805; 83735; 83880; 85025; 85027; 86850; 86900; 86901; 93005; 93010; 94640; 96374; 97139; J0171; J0690; J1100; J1650; J1885; J2001; J2270; J2370; J2405; J2704; J3010; J3475; J3490; J7120; J7620; Q9967; S0020; U0002; U0003; U0005